=== PATIENT | female | born 1960 | race Two or more races ===

== ENCOUNTER 2019-05-23 08:30 | Emergency (ER) | payer OTHER ==
[~2019-05-23] VITALS: Ht 162.6 cm; Wt 99.8 kg
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
[2019-05-23 08:40] VITALS: BP 134/95
--- NOTE | 2019-05-23 08:55 | NUR ---
ED Nurse Note: Blood glucose 214, Dr. Torres notified.
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
[2019-05-23] MEDS ORDERED: Ketorolac 30mg Inj IM ONE (09:00)
--- NOTE | 2019-05-23 09:05 | NUR ---
ED Nurse Note: Patient's [id number] at bedside.
[2019-05-23] MEDS ORDERED: METFORMIN HCL850 M1 ORAL (09:17)
[2019-05-23] MEDS ORDERED: JANUVIA25 MG ORAL (09:17)
--- NOTE | 2019-05-23 09:20 | NUR ---
ED Nurse Note: Xray at bedside.
--- NOTE | 2019-05-23 09:45 | NUR ---
ED Nurse Note: Patient states her left index finger and thumb are numb, Dr. Torres notified.
[2019-05-23 10:03] VITALS: BP 130/87
--- NOTE | 2019-05-23 10:09 | Diagnostic Imaging Report ---
Indication: Pain, trauma, status post fall Technique: 2 views of the left hip, one view the pelvis Comparison: none Findings: No acute fractures. No dislocations. The joint spaces are preserved Impression: Negative
--- NOTE | 2019-05-23 10:11 | Diagnostic Imaging Report ---
Indication: Pain, trauma, status post fall Technique: 3 views of the left ankle Comparison: none Findings: No acute fractures. No dislocations. The joint spaces are preserved. Impression: Negative
--- NOTE | 2019-05-23 10:11 | Diagnostic Imaging Report ---
Indication: Pain, trauma, status post fall Technique: One view of the chest Comparison: none Findings: Lungs and pleural spaces are clear. Heart size is normal. Impression: No acute process
--- NOTE | 2019-05-23 10:44 | Diagnostic Imaging Report ---
Indication: Pain, trauma, status post fall Technique: 3 views of the left shoulder Comparison: none Findings: No acute fractures. No dislocations. The joint spaces are preserved Impression: Negative
[2019-05-23] MEDS ORDERED: oxyCODONE HCL/Acetaminophen 5/325mg ORAL ONE (11:15)
[2019-05-23] MEDS ORDERED: ROBAXIN-500MG ORAL (13:08)
[2019-05-23] MEDS ORDERED: IBUPROFEN600 MG ORAL (13:08)
[2019-05-23] MEDS ORDERED: NORCO 5-325 TA1 EACH ORAL (13:08)
[2019-05-23 13:22] VITALS: BP 134/83
--- NOTE | 2019-05-23 13:37 | NUR ---
ER DISCHARGE NOTE: Patient is cleared to be discharged per ERMD, pt is aox4, on room air, with stable vital signs. pt was given dc and prescription instructions, pt was able to verbalize understanding, pt id band removed. pt is able to ambulate with steady gait. pt took all belongings. Pt. wheeled in to the car.
== END 2019-05-23 13:22 | disposition home or self-care (01) ==
LOC: EDBD 08:30 → EMR 09:14
DX: S06.0X0A Concussion without loss of consciousness, initial encounter (principal); S40.012A Contusion of left shoulder, initial encounter; S80.12XA Contusion of left lower leg, initial encounter; W19.XXXA Unspecified fall, initial encounter; Y92.811 Bus as the place of occurrence of the external cause; E11.9 Type 2 diabetes mellitus without complications; I10 Essential (primary) hypertension
CPT/HCPCS: 71045; 73030; 73502; 73610; 82962; 96372; J1885; Z7502; 99284